=== PATIENT | female | born 1955 | race Two or more races ===

== ENCOUNTER 2018-06-15 05:58 | Inpatient (IN) | payer OTHER ==
[~2018-06-15] VITALS: Ht 162.6 cm; Wt 87.1 kg
[~2018-06-15 05:58] MED LIST: ABILIFY2 MG PO; BACLOFEN10 MG PO; FORTAMET500 MG PO; GABAPENT PO; GABAPENTIN300 MG PO; MS CONTIN30 M1 PO; PROZAC20 MG PO; REQUIP0.25 MG PO; TIROSINT13 MCG PO
[2018-06-17] MEDS ORDERED: PERCOCET 5-3251 EACH PO (17:14)
[2018-06-17] MEDS ORDERED: ELIQUIS2.5 MG PO (17:14)
== END 2018-06-17 18:34 | disposition home health service (06) | DRG 470 ==
LOC: O/R 05:58 → SURH 05:58
PROVIDERS: ADMIT Orthopaedic Surgery
PROC: 0T9B70Z Drainage of Bladder with Drainage Device, Via Natural or Artificial Opening (ICD-10-PCS; 2018-06-15)
PROC: 0SRB0JA Replacement of Left Hip Joint with Synthetic Substitute, Uncemented, Open Approach (ICD-10-PCS; principal; 2018-06-15 04:00)
DX: M16.12 Unilateral primary osteoarthritis, left hip (principal); E23.2 Diabetes insipidus; D62 Acute posthemorrhagic anemia; Z88.0 Allergy status to penicillin; Z88.2 Allergy status to sulfonamides; E66.09 Other obesity due to excess calories; E03.8 Other specified hypothyroidism

== ENCOUNTER 2020-02-08 10:15 | Inpatient (IN) | payer OTHER ==
[~2020-02-08] VITALS: Ht 162.6 cm; Wt 104.3 kg
[~2020-02-08 10:15] MED LIST changes: +ELIQUIS2.5 MG PO; +PERCOCET 5-3251 EACH PO
[2020-02-08] MEDS ORDERED: LIPITOR40 M1 PO (15:44)
[2020-02-08] MEDS ORDERED: SYNTHROID50 MCG PO (15:45)
[2020-02-08] MEDS ORDERED: FORTAMET500 MG PO (15:45)
[2020-02-16] MEDS ORDERED: PERCOCET 5-3251 EACH PO (15:50)
[2020-02-16] MEDS ORDERED: ELIQUIS2.5 MG PO (15:50)
[2020-02-16] MEDS ORDERED: CIPRO500 MG PO (15:50)
== END 2020-02-16 16:59 | DRG 467 ==
LOC: SURH 10:15 → PED 02-14 05:45 → O/R 02-14 05:45 → PED 02-14 16:23
PROVIDERS: ADMIT Orthopaedic Surgery; ATTEND Orthopaedic Surgery
PROC: 0SPB0JZ Removal of Synthetic Substitute from Left Hip Joint, Open Approach (ICD-10-PCS; 2020-02-14)
PROC: 0SRB0JZ Replacement of Left Hip Joint with Synthetic Substitute, Open Approach (ICD-10-PCS; principal; 2020-02-14 09:00)
DX: T84.021A Dislocation of internal left hip prosthesis, initial encounter (principal); D62 Acute posthemorrhagic anemia; E23.2 Diabetes insipidus; E03.9 Hypothyroidism, unspecified; Z79.01 Long term (current) use of anticoagulants